=== PATIENT | female | born 1955 | race Caucasian/White ===

== ENCOUNTER 2023-08-16 13:39 | Emergency (ER) | payer MEDICARE, BC, SELFPAY ==
[2023-08-16 13:41] VITALS: BP 151/91; PULSE 85; RESP 20; TEMP 36.6; O2SAT 98; BMI 20.7
--- NOTE | 2023-08-16 14:00 | HMH.EDGENADL ---
Discharge Plan Disposition Patient Disposition: Home, Self-Care Prescriptions Prescriptions: New prednisone 20 mg tablet 40 mg PO BID 5 Days Qty: 20 0RF lidocaine 5 % adhesive patch,medicated 1 patch topical DAILY Qty: 15 0RF Rx Instructions: leave on most painful area for up to 12 hrs Referrals Follow up/Referrals: Amando Wills, PT [Physical Therapist] - See instructions Jaquan Bill DO [Staff Physician] - See instructions Provider,Referral, MD [Primary Care Provider] - See instructions Activity Restrictions/Add. Instructions Additional Instructions/Restrictions: Call your family doctor to establish care for this visit to the emergency department and schedule follow-up within 48 hours to ensure improvement. If you have any worsening of your condition or any other concerning signs or symptoms, return to the emergency department or your primary care doctor for further evaluation. Prednisone daily for 5 days. Lidocaine patches over point of maximal tenderness. Clinical Impressions Clinical Impression: Sciatica Qualifiers: Laterality: left Qualified Code(s): M54.32 - Sciatica, left side Instructions Patient Instructions: DI for Low Back Pain Discharge ED Provider: Jose Rafael Maldonado General Adult HPI General Chief complaint: Back Pain/Injury Stated complaint: lower left back pain, limited mobility Time Seen by Provider: 08/16/23 13:44 Mode of Arrival: Ambulatory Source of Information: Patient Limitations: No Limitations Description of Symptoms (Recalled from ER Triage Doc. by RN): pt went hiking on thursday and then woke up [place] with left side sciatica pain yesterday took 1000mg tylenol/600 mg motrin. today the pain began to radiate upwards and bilaterally. no problems walking or having bowel mvmts and urination History of Present Illness HPI narrative: 67-year-old female history of hyperlipidemia presenting with back and leg pain. Patient states that she has had back pain on and off in the past. Went on a hiking trip, also had a misstep a few days prior to arrival. Since that time, has had aching lower back pain. She started having pain shooting from middle lower back down the back of her left leg down to her left knee. She assumes this is sciatica. Is never had sciatic nerve pain in the past. Denies bowel or bladder dysfunction, saddle anesthesia, difficulty walking, weakness, or any other concerns. Related Data Previous Rx's Medication Instructions Recorded lidocaine 5 % topical patch 1 patch topical DAILY #15 ea 08/16/23 prednisone 20 mg tablet 40 mg PO BID 5 days #20 tabs 08/16/23 Allergies Allergy/AdvReac Type Severity Reaction Status Date / Time No Known Allergies Allergy Verified 08/16/23 14:13 [facility] Disclaimer: The information contained in this section may have been updated after the patient was seen, as this information can be updated by other users. Social History Smoking Status: Never smoker alcohol intake: never current occupational status: retired Travel in the last 8 weeks: None ROS Obtained: Yes All systems reviewed & no additional complaints except as documented Physical Exam General General appearance: alert and in no apparent distress Head Head exam: atraumatic and normocephalic Eye Eye exam: Present normal appearance, PERRL and EOMI ENT ENT exam: Present mucous membranes moist Neck Neck exam: Present normal inspection, full ROM and trachea midline Respiratory Respiratory exam: Absent respiratory distress, wheezes, stridor, accessory muscle use or prolonged expiratory phase Cardiovascular Cardiovascular exam: Present normal rhythm Extremities Exam Extremities exam: Absent edema Back Exam Back exam: Present sciatic notch tenderness (L); Absent sciatic notch tenderness (R) Neurological Exam Neurological exam: Present alert, oriented X3, CN II-XII intact and normal gait; Absent motor sensory deficit Skin Skin exam: Prese
[2023-08-16 14:20] VITALS: BP 140/82; PULSE 75; RESP 20; TEMP 36.7; O2SAT 98
== END 2023-08-16 14:21 | disposition home or self-care (01) ==
PROVIDERS: Emergency Provider Emergency Medicine
DX: M54.32 Sciatica, left side (principal); E78.5 Hyperlipidemia, unspecified
CPT/HCPCS: 99283

== ENCOUNTER → 2023-08-18 10:56 | Outpatient (CLI) | payer MEDICARE, BC, SELFPAY ==
--- NOTE | 2023-08-18 11:01 | XR_ITS ---
FINAL REPORT CLINICAL HISTORY: SI Pain, immobility FINDINGS: SACROILIAC JOINTS Three views demonstrate no acute fracture or dislocation. The sacral arches are intact. The joint spaces appear normal. No soft tissue abnormality is seen. IMPRESSION: No acute bony abnormality. Reviewed, Interpreted and Dictated by Keith Horne III, MD Transcribed by Antony Gonzalez Authenticated and [facility]
== END ==
PROVIDERS: Visit Provider Internal Medicine
DX: M46.1 Sacroiliitis, not elsewhere classified (principal)
CPT/HCPCS: 72202